=== PATIENT | female | born 2000 | race Two or more races ===

== ENCOUNTER 2021-02-28 19:06 | Emergency (ER) | payer MEDICAID ==
[~2021-02-28] VITALS: Ht 175.3 cm; Wt 73.5 kg
--- NOTE | 2021-02-28 19:20 | NUR ---
PT BIBS FROM HOME C/O R ELBOW PAIN S/P TRIP AND FALL. AAO X 4, BREATHING EVEN AND UNLABORED. NO SIGN OF ACUTE DISTRESS. SEEN AND EXAMINED BY MD. WILL CONTINUE TO MONITOR
[2021-02-28] MEDS ORDERED: IBUPROFEN 400 MG TABLET ONE (19:28)
[2021-02-28] MEDS: IBUPROFEN 400 MG TABLET PO ONE (19:31)
[2021-02-28] MEDS ORDERED: IBUP-1957 PO (20:38)
--- NOTE | 2021-02-28 20:42 | NUR ---
Patient discharged to home in stable condition. Written and verbal after care instructions given. Patient verbalizes understanding of instruction.
[2021-02-28 20:43] VITALS: BP 140/70
== END 2021-02-28 20:43 | disposition home or self-care (01) ==
LOC: ER 19:08
DX: S50.01XA Contusion of right elbow, initial encounter (principal); W01.0XXA Fall on same level from slipping, tripping and stumbling without subsequent striking against object, initial encounter; Y93.89 Activity, other specified; Y92.89 Other specified places as the place of occurrence of the external cause; Y99.8 Other external cause status
CPT/HCPCS: 73080-TC; 73090-TC